=== PATIENT | female | born 1980 | race Caucasian/White ===

== ENCOUNTER → 2024-02-11 14:35 | Outpatient (CLI) | payer OTHER, SELFPAY ==
[2024-02-11 15:13] LABS: Ur Creatinine Normal (Normal); Ur Specific Gravity Normal (Normal); Urine Tetrahydrocannabinol Positive (Negative); Urine pH Normal (Normal)
[2024-02-11 15:14] LABS: UR Morphine/Opiate cutoff 300 Negative (Negative); Urine Amphetamines Negative (Negative); Urine Barbiturates Negative (Negative); Urine Benzodiazepines Negative (Negative); Urine Cocaine Negative (Negative); Urine MDMA Negative (Negative); Urine Methadone Negative (Negative); Urine Methamphetamines Negative (Negative); Urine Oxycodone Negative (Negative); Urine Phencyclidine Negative (Negative); Urine Tricyclic Antidepressant Negative (Negative)
== END ==
PROVIDERS: PCP Family Medicine; Referring Provider Student in an Organized Health Care Education/Training Program; Visit Provider Student in an Organized Health Care Education/Training Program
DX: Z51.81 Encounter for therapeutic drug level monitoring (principal)
CPT/HCPCS: 80305

== ENCOUNTER 2024-03-09 16:45 | Emergency (ER) | payer OTHER, MEDICAID, SELFPAY ==
[2024-03-09] VITALS (24 sets, daily range): BP systolic 78–115; BP diastolic 44–69; PULSE 69–87; RESP 14–42; TEMP 37; O2SAT 96–100; BMI 25.7
--- NOTE | 2024-03-09 16:56 | DI.RAD.S_ITS ---
PROCEDURE: XR CHEST 1V INDICATIONS: suspected sepsis TECHNIQUE: One view of the chest was acquired. COMPARISON: None. FINDINGS: Surgical changes and devices: Partially visualized catheter projecting over the right upper quadrant. Lungs and pleura: Lungs are clear. No pleural effusions or pneumothorax. Mediastinum: Mediastinal contours appear normal. Heart size is normal. Bones and chest wall: No suspicious bony lesions. Overlying soft tissues appear unremarkable. IMPRESSION: No acute cardiopulmonary abnormality is seen. Dictated by: Wilton Downs M.D. on 03/09/2024 at 17:20 Approved by: Wilton Downs M.D. on 03/09/2024 at 17:20
--- NOTE | 2024-03-09 16:56 | EKG_ITS ---
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
[2024-03-09 17:23] LABS: Add Manual Diff / Slide Review NO; Basophils Absolute Auto 0 /uL (0-100); Basophils Percent Auto 0.3 % (0-2); Eosinophils Absolute Auto 100 /uL (0-450); Eosinophils Percent Auto 0.6 % (2-4); Hematocrit 23.8 % (36-46); Hemoglobin 7.7 g/dL (12.0-16.0); Lymphocytes Absolute Auto 500 /uL (1100-4500); Lymphocytes Percent Auto 3.5 % (25-40); Mean Corpuscular HGB Conc 32.2 % (30-36); Mean Corpuscular Hemoglobin 25.5 PG (26-34); Mean Corpuscular Volume 79.2 fL (80-100); Monocytes Absolute Auto 600 /uL (0-900); Monocytes Percent Auto 4.7 % (3-14); Neutrophils Absolute Auto 11800 /uL (1500-7000); Neutrophils Percent Auto 90.9 % (50-75); Platelet Count 451 X10^3/uL (150-400); Red Cell Distribution Width 16.1 % (11.6-14.8); White Blood Cell Count 12.9 X10^3/uL (4.5-11.0)
[2024-03-09 17:27] LABS: INR 1.3 (0.9-1.3); Prothrombin Time 14.6 SECONDS (9.4-12.5)
[2024-03-09 17:30] LABS: PTT Partial Thromboplastin Tim 29 SECONDS (25.1-36.5)
[2024-03-09 17:33] LABS: Lactate (Lactic Acid) 1.4 mmol/L (0.7-2.1)
[2024-03-09 17:35] LABS: Alanine Aminotransferase 18 IU/L (<35); Albumin 3.7 g/dL (3.5-5.0); Albumin Globulin Ratio 0.9 (1.0-2.8); Alkaline Phosphatase 109 U/L (38-126); Aspartate Aminotransferase 28 IU/L (14-36); BUN Creatinine Ratio 16.5 (6-22); Bilirubin Total 0.6 mg/dL (0.2-1.3); Blood Urea Nitrogen 51 mg/dL (7-17); Carbon Dioxide 14 mmol/L (22-32); Chloride 101 mmol/L (98-107); Estimated Glomerular Filt Rate 19 mL/min (>60); Globulin 3.9 g/dL (1.7-4.1); Glucose 109 mg/dL (70-100); HEMOLYSIS < 15 (0-50); Lipase 78 U/L (23-300); Sodium 131 mmol/L (137-145); Total Protein 7.6 g/dL (6.3-8.2)
[2024-03-09] MEDS: SODIUM CHLORIDE 0.9% 1,000 ML 1000 ML IV (17:42)
[2024-03-09 17:52] LABS: Procalcitonin 1.71 ng/mL (<0.5)
[2024-03-09] MEDS: ONDANSETRON 4 MG/2 ML INJ IV (17:54)
--- NOTE | 2024-03-09 17:59 | DI.CT.S_ITS ---
PROCEDURE: CT ABDOMEN PELVIS WO CON INDICATIONS: Possible psoas mass/left flank pain TECHNIQUE: Axial sections were acquired from the lung bases to the pubic symphysis. Coronal and sagittal reformats were performed. For radiation dose reduction, the following was used: automated exposure control, adjustment of mA and/or kV according to patient size. COMPARISON: [facility], CT, CT ABDOMEN PELVIS WITHOUT CONTRAST, 04/12/2023, 12:46. FINDINGS: Image quality: Diagnostic. Lower Chest: Mild ground-glass at the left medial base, likely atelectasis given moderate to large hiatal hernia. Hiatal hernia appears mildly increased in size compared to prior. URINARY: Right Kidney: Right percutaneous nephroureteral tube extending to the right lower quadrant ileal conduit. Right Ureter: Stent in place. Left Kidney: Moderate to severe left hydro nephrosis is increased compared to prior. Left Ureter: At least moderate left hydroureter is increased compared to prior. Bladder: Surgically absent. ABDOMEN: Liver: No contour-deforming solid mass. Gallbladder: No radiopaque gallstones or wall thickening. Biliary ducts: No biliary dilation. Pancreas: No ductal dilation. Spleen: Size is within normal limits. Adrenal Glands: No adrenal nodules. Stomach and Bowel: Prior proctectomy and tram flap reconstruction. Left lower quadrant colostomy is redemonstrated. Peritoneum: No abnormal intraperitoneal fluid. No free air. Ventral Wall: No hernia. Abdominal Nodes: No enlarged retroperitoneal or mesenteric lymph nodes. Vessels: Aorta and inferior vena cava are normal in size. Atherosclerotic vascular calcifications. PELVIS: Pelvic Organs: Unremarkable. Pelvic Nodes: Unremarkable. Miscellaneous: Left pelvic sidewall/psoas lesion now demonstrates heterogeneous internal contents with gas, may represent central necrosis. It is increased in size compared to prior exam measuring 11.7 x 8.3 centimeters, previously 8.2 x 6.4 centimeters. Bones: Redemonstration of sacral insufficiency fracture. No suspicious osseous lesions. IMPRESSION: 1. Increased size of left pelvic sidewall/psoas lesion measuring up to 11.7 centimeters, previously 8.2 centimeters. There is new gas within the lesion with heterogeneous contents which likely represents central necrosis. 2. Interval development of moderate to severe left hydroureter nephrosis and at least moderate hydroureter. 3. Interval placement of right percutaneous nephrostomy ureteral tube extending to the right ileal conduit in. Resolution of prior hydronephrosis. 4. Stable postsurgical changes as described above. Dictated by: Wilton Downs M.D. on 03/09/2024 at 18:55 Approved by: Wilton Downs M.D. on 03/09/2024 at 19:05
[2024-03-09] MEDS: cefTRIAXone 1,000 MG in SODIUM CHLORIDE 0.9% 100 ML 200 MG IV (18:41)
--- NOTE | 2024-03-09 19:01 | ED_ITS ---
HPI - General Adult General Chief complaint: Weakness Stated complaint: left side px difficulty walking Time Seen by Provider: 03/09/24 17:36 Source: patient Mode of arrival: EMS Limitations: no limitations History of Present Illness HPI narrative: Patient is a 43-year-old female. Has a complicated medical history. Has had a history of cervical cancer. Has had most of her pelvic organs removed. Has a right-sided urostomy. Also has a colostomy. 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 She was being followed by Oncology for this. Is not currently undergoing treatment. Unsure when her last scan was but she thinks that it was some time ago. She also was recently started on antibiotics for urinary tract infection. She states she gets frequent urinary tract infections and a couple days ago started noticing that she was getting subjective fevers but also foul-smelling urine and discolored urine. This was prescribed by her oncologist. Over the past several days she was had an increase in discomfort in her left pelvic region. She was on Suboxone. Has a history of heroin abuse. Has been clean for about 13 years. 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 She was not taking her Suboxone today. States when she starts to feel poorly it is ?difficult? for her to take this medication. She has a follow-up with her oncologist on Wednesday of next week. Related Data Home Medications Medication Instructions Recorded Confirmed docusate sodium 100 mg capsule 100 mg PO BIDP PRN ##0 08/03/17 02/09/24 estradiol 2 mg tablet 2 mg PO QDAY ##0 08/03/17 02/09/24 multivitamin (Multiple Vitamins 1 tab PO QDAY ##0 08/03/17 02/09/24 tablet) buprenorphine 8 mg-naloxone 2 mg 1 film sublingual BID #0 ea 05/05/19 02/09/24 sublingual film (Suboxone) ascorbic acid (vitamin C) 500 mg mg PO 02/09/24 02/09/24 capsule Previous Rx's Medication Instructions Recorded clonidine HCl 0.2 mg tablet See Rx Instructions .Route 02/09/24 .COMPLEX #90 tabs dextroamphetamine-amphetamine ER 15 mg PO QAM ADHD #30 caps 02/09/24 15 mg 24hr capsule,extend release (Adderall XR) fluoxetine 40 mg capsule 80 mg (2 x 40 mg) PO DAILY 90 days 02/09/24 #180 caps Allergies Allergy/AdvReac Type Severity Reaction Status Date / Time ciprofloxacin Allergy Severe HIVES Verified 03/09/24 16:48 Penicillins [PENICILLINS] Allergy Mild HIVES Verified 03/09/24 16:48 adhesive tape Allergy Verified 03/09/24 16:48 amoxicillin Allergy hives, Verified 03/09/24 16:48 swelling TRACE MEDALS Allergy Mild ANAPHILAXIS Uncoded 03/09/24 16:48 Review of Systems Review of Systems ROS Unobtainable: All systems reviewed & are unremarkable except as noted in HPI and below Patient History Medical History Stimulant use disorder Opioid use disorder, severe, in sustained remission MDD (major depressive disorder), recurrent, in full remission PTSD (post-traumatic stress disorder) Colostomy present Metastasis from cervical cancer Primary cervical squamous cell carcinoma CKD (chronic kidney disease) Depression (emotion) Surgical History (Updated 08/27/20 @ 11:55 by Yung Elliott DO) Nephrostomy status S/P hysterectomy Social History Smoking Status: Former smoker Smoking Status: Former smoker Substance Use Type: marijuana Exam Initial Vital Signs Initial Vital Signs: Vital Signs Temperature 98.6 F 03/09/24 16:48 Pulse Rate 87 03/09/24 16:48 Respiratory Rate 16 03/09/24 16:48 Blood Pressure 86/48 L 03/09/24 16:48 Pulse Oximetry 96 03/09/24 16:48 Oxygen Delivery Method Room Air 03/09/24 16:48 Const General: cooperative and No ill appearing [facility] Head: normal to inspection and normocephalic Resp Effort & Inspection: normal respiratory effort Auscultation: clear to auscultation bilaterally Cardio Rate: regular rate Rhythm: regular rhythm GI Other: Colostomy in place and appears well Back/Spine/Pelvis Other: Urostomy right CVA region appears well Skin General: no rashes or lesions noted Neuro General: patient alert, patient awake and moves all extremities Extrem General: capillary refill normal Course Orders Ordered: ED Orders 03/09/24 16:56 XR chest 1V Stat EKG-12 Lead Stat RT Consult Eval and Treat NOW 03/09/24 17:07 Complete Blood Count AUTO DIFF Stat Comprehensive Metabolic Panel Stat Lactate (Lactic Acid) Stat Lipase Stat PTT Partial Thromboplastin Brendan Stat Test Serum,Qual Stat Procalcitonin Stat Prothrombin Time INR Stat 03/09/24 17:59 CT abdomen pelvis wo con Stat 03/09/24 18:45 Urinalysis and Microscopic Stat Urine Culture Stat Urine Drug Screen, Rapid Stat Discontinued Medications Sodium Chloride (Normal Saline 0.9%) 1,000 mls @ 1,000 mls/hr IV BOLUS ONE Stop: 03/09/24 18:35 Last Infusion: 03/09/24 19:10 Dose: Infused Documented By: Admin: 03/09/24 17:42 Dose: 1,000 mls/hr Documented By: RADHA Ceftriaxone Sodium 1,000 mg/ (Sodium Chloride) 100 mls @ 200 mls/hr IV NOW ONE Stop: 03/09/24 18:21 Last Infusion: 03/09/24 19:18 Dose: Infused Documented By: Admin: 03/09/24 18:41 Dose: 200 mls/hr Documented By: RADHA Ondansetron HCl (Ondansetron 4 Mg/2 Ml Inj) 4 mg IV NOW PRN PRN Reason: Nausea And Vomiting Last Admin: 03/09/24 17:54 Dose: 4 mg Documented By: RADHA Ondansetron HCl (Ondansetron 4 Mg Odt) 4 mg SL NOW PRN PRN Reason: Nausea And Vomiting Vital Signs Vital signs: Vital Signs - 8 hr 03/09/24 16:48 03/09/24 17:41 03/09/24 17:42 Temperature 98.6 F Pulse Rate 87 75 Respiratory Rate 16 14 Blood Pressure 86/48 L 78/52 L Pulse Oximetry 96 97 Oxygen Delivery Method Room Air 03/09/24 17:42 03/09/24 17:43 03/09/24 17:43 Temperature Pulse Rate 75 74 Respiratory Rate 22 17 Blood Pressure 93/47 L Pulse Oximetry 99 99 Oxygen Delivery Method 03/09/24 17:45 03/09/24 17:45 03/09/24 17:50 Temperature Pulse Rate 74 78 Respiratory Rate 21 Blood Pressure 90/52 L Pulse Oximetry 99 96 Oxygen Delivery Method Room Air 03/09/24 17:50 03/09/24 17:55 03/09/24 17:55 Temperature Pulse Rate 72 Respiratory Rate 28 H Blood Pressure 94/44 L 93/52 L Pulse Oximetry 100 Oxygen Delivery Method Room Air 03/09/24 18:00 03/09/24 18:00 03/09/24 18:05 Temperature Pulse Rate 74 73 Respiratory Rate 37 H 29 H Blood Pressure 85/50 L Pulse Oximetry 99 100 Oxygen Delivery Method Room Air 03/09/24 18:05 03/09/24 18:13 03/09/24 18:13 Temperature Pulse Rate 78 Respiratory Rate 42 H Blood Pressure 91/54 L 90/48 L Pulse Oximetry 99 Oxygen Delivery Method 03/09/24 18:16 03/09/24 18:16 03/09/24 18:21 Temperature Pulse Rate 74 75 Respiratory Rate 24 Blood Pressure 92/51 L Pulse Oximetry 100 99 Oxygen Delivery Method 03/09/24 18:21 03/09/24 18:30 03/09/24 18:30 Temperature Pulse Rate 73 Respiratory Rate Blood Pressure 97/54 L 87/48 L Pulse Oximetry 97 Oxygen Delivery Method Room Air 03/09/24 18:50 03/09/24 18:50 03/09/24 19:00 Temperature Pulse Rate 79 71 Respiratory Rate 19 Blood Pressure 97/53 L Pulse Oximetry 98 100 Oxygen Delivery Method Room Air 03/09/24 19:00 03/09/24 19:10 03/09/24 19:10 Temperature Pulse Rate 69 Respiratory Rate Blood Pressure 110/65 107/62 Pulse Oximetry 99 Oxygen Delivery Method Room Air 03/09/24 19:20 03/09/24 19:20 03/09/24 19:30 Temperature Pulse Rate 71 71 Respiratory Rate 20 21 Blood Pressure 106/62 111/69 Pulse Oximetry 99 99 Oxygen Delivery Method Room Air 03/09/24 19:40 03/09/24 19:50 03/09/24 20:00 Temperature Pulse Rate 71 70 71 Respiratory Rate 23 22 16 Blood Pressure 104/55 L 101/59 L 97/59 L Pulse Oximetry 98 98 Oxygen Delivery Method 03/09/24 20:10 03/09/24 20:20 03/09/24 20:30 Temperature Pulse Rate 71 73 71 Respiratory Rate 18 20 18 Blood Pressure 106/64 115/69 104/60 Pulse Oximetry 98 100 100 Oxygen Delivery Method Room Air Medical Decision Making Lab Data Lab results reviewed: Yes I reviewed the patient's lab results. 03/09/24 17:07 03/09/24 17:07 Labs: Lab Results 03/09/24 03/09/24 03/09/24 Range/Units 17:07 18:45 18:45 WBC 12.9 H (4.5-11.0) X10^3/uL RBC 3.00 L (4.0-5.2) X10^6/uL Hgb 7.7 L (12.0-16.0) g/dL Hct 23.8 L (36-46) % MCV 79.2 L (80-100) fL MCH 25.5 L (26-34) PG MCHC 32.2 (30-36) % RDW 16.1 H (11.6-14.8) % Plt Count 451 H (150-400) X10^3/uL Neut % (Auto) 90.9 H (50-75) % Lymph % (Auto) 3.5 L (25-40) % [place] % (Auto) 4.7 (3-14) % Eos % (Auto) 0.6 L (2-4) % Baso % (Auto) 0.3 (0-2) % Neut # (Auto) 19955 H (5524-1155) /uL Lymph # (Auto) 500 L (0081-4778) /uL Edwards # (Auto) 600 (0-900) /uL Eos # (Auto) 100 (0-450) /uL Baso # (Auto) 0 (0-100) /uL PT 14.6 H (9.4-12.5) SECONDS INR 1.3 (0.9-1.3) APTT 29 (25.1-36.5) SECONDS Sodium 131 L (137-145) mmol/L Potassium 3.0 L (3.4-5.1) mmol/L Chloride 101 (98-107) mmol/L Carbon Dioxide 14 L (22-32) mmol/L BUN 51 H (7-17) mg/dL Creatinine 3.09 H (0.52-1.04) mg/dL Estimated GFR 19 L (>60) mL/min BUN/Creatinine Ratio 16.5 (6-22) Glucose 109 H (70-100) mg/dL Lactate 1.4 (0.7-2.1) mmol/L Calcium 9.0 (8.4-10.2) mg/dL Total Bilirubin 0.6 (0.2-1.3) mg/dL AST 28 (14-36) IU/L ALT 18 (<35) IU/L Alkaline Phosphatase 109 (38-126) U/L Total Protein 7.6 (6.3-8.2) g/dL Albumin 3.7 (3.5-5.0) g/dL Globulin 3.9 (1.7-4.1) g/dL Albumin/Globulin Ratio 0.9 L (1.0-2.8) Lipase 78 (23-300) U/L Procalcitonin 1.71 H (<0.5) ng/mL Serum , Qual Negative (Negative) Urine Color Yellow Urine Appearance Clear Urine pH 5.0 Normal (4.5-8.0) Ur Specific [place] 1.015 (1.000-1.035) Urine Protein Trace H (Negative) Urine Glucose (UA) Negative (Negative) g/dL Urine Ketones Negative (NEGATIVE) Urine Occult Blood 1+ H (Negative) Urine Nitrate Positive H (Negative) Urine Bilirubin Negative (NEGATIVE) Urine Urobilinogen 0.2 (0.2) E.U./dL Ur Leukocyte Esterase 3+ H (NEGATIVE) Urine RBC 0-1/hpf (0-5/HPF) Urine WBC 10-30/hpf H (0-5/HPF) Ur Squamous Epith Cells 1-5 /hpf (0-5/HPF) Amorphous Sediment 1+ Urine Bacteria Many (>30) H (None) Vol Urine Centrifuged 2-no spin U Opiates 300ng/mL cut Negative (Negative) Ur Oxycodone Screen Negative (Negative) Urine Methadone Screen Negative (Negative) Ur Barbiturates Screen Negative (Negative) U Tricyclic Antidepress Negative (Negative) Ur Phencyclidine Scrn Negative (Negative) Ur Amphetamines Screen Negative (Negative) U Methamphetamines Scrn Negative (Negative) Ur MDMA Scrn (Ecstasy) Negative (Negative) U Benzodiazepines Scrn Negative (Negative) Urine Cocaine Screen Negative (Negative) U Marijuana (THC) Screen Positive H (Negative) Urine Specific [place] Normal (Normal) Ur Creatinine Normal (Normal) Imaging Data Chest x-ray: Radiologist's Impression: ROCEDURE: XR CHEST 1V INDICATIONS: suspected sepsis TECHNIQUE: One view of the chest was acquired. COMPARISON: None. FINDINGS: Surgical changes and devices: Partially visualized catheter projecting over the right upper quadrant. Lungs and pleura: Lungs are clear. No pleural effusions or pneumothorax. Mediastinum: Mediastinal contours appear normal. Heart size is normal. Bones and chest wall: No suspicious bony lesions. Overlying soft tissues appear unremarkable. IMPRESSION: No acute cardiopulmonary abnormality is seen. CT scan - abdomen/pelvis: Radiologist's Impression: PROCEDURE: CT ABDOMEN PELVIS WO CON INDICATIONS: Possible psoas mass/left flank pain TECHNIQUE: Axial sections were acquired from the lung bases to the pubic symphysis. Coronal and sagittal reformats were performed. For radiation dose reduction, the following was used: automated exposure control, adjustment of mA and/or kV according to patient size. COMPARISON: [facility], CT, CT ABDOMEN PELVIS WITHOUT CONTRAST, 04/12/2023, 12:46. FINDINGS: Image quality: Diagnostic. Lower Chest: Mild ground-glass at the left medial base, likely atelectasis given moderate to large hiatal hernia. Hiatal hernia appears mildly increased in size compared to prior. URINARY: Right Kidney: Right percutaneous nephroureteral tube extending to the right lower quadrant ileal conduit. Right Ureter: Stent in place. Left Kidney: Moderate to severe left hydro nephrosis is increased compared to prior. Left Ureter: At least moderate left hydroureter is increased compared to prior. Bladder: Surgically absent. ABDOMEN: Liver: No contour-deforming solid mass. Gallbladder: No radiopaque gallstones or wall thickening. Biliary ducts: No biliary dilation. Pancreas: No ductal dilation. Spleen: Size is within normal limits. Adrenal Glands: No adrenal nodules. Stomach and Bowel: Prior proctectomy and tram flap reconstruction. Left lower quadrant colostomy is redemonstrated. Peritoneum: No abnormal intraperitoneal fluid. No free air. Ventral Wall: No hernia. Abdominal Nodes: No enlarged retroperitoneal or mesenteric lymph nodes. Vessels: Aorta and inferior vena cava are normal in size. Atherosclerotic vascular calcifications. PELVIS: Pelvic Organs: Unremarkable. Pelvic Nodes: Unremarkable. Miscellaneous: Left pelvic sidewall/psoas lesion now demonstrates heterogeneous internal contents with gas, may represent central necrosis. It is increased in size compared to prior exam measuring 11.7 x 8.3 centimeters, previously 8.2 x 6.4 centimeters. Bones: Redemonstration of sacral insufficiency fracture. No suspicious osseous lesions. IMPRESSION: 1. Increased size of left pelvic sidewall/psoas lesion measuring up to 11.7 centimeters, previously 8.2 centimeters. There is new gas within the lesion with heterogeneous contents which likely represents central necrosis. 2. Interval development of moderate to severe left hydroureter nephrosis and at least moderate hydroureter. 3. Interval placement of right percutaneous nephrostomy ureteral tube extending to the right ileal conduit in. Resolution of prior hydronephrosis. 4. Stable postsurgical changes as described above. ECG Data Attestation: I personally reviewed and interpreted this ECG as follows: Interpretation: Sinus rhythm Ventricular rate is 71 Normal axis Normal QRS No ST T wave changes MDM Narrative Medical decision making narrative: She was have a leukocytosis of 12 in an elevated procalcitonin and a urinalysis that would be consistent with a urinary tract infection although she was currently on Cipro. I have no prior urine cultures to review to make any changes to this medication. Her urostomy appears well. Colonoscopy appears well. She was not taking her Suboxone today. Is tolerating oral intake. Was actually brought in because of increasing pain in her left pelvic region. CT scan today shows enlargement of the psoas lesion. Almost twice as large as what it was year ago. She was a creatinine of 3. She states she has baseline chronic kidney disease and she thinks that her creatinine is in the 2.5 range of baseline. There was no prior for us to evaluate here in the ER. I did discuss the case with Dr. Louise oncology who was informed of the findings. He agrees that patient can follow-up with her oncologist on Wednesday. Had a discussion with her regarding her symptoms. She understands the concern about starting her on opioid pain medicine given her history. Advised that she take her Suboxone. Advised that she contact her painter interior finish tomorrow to discuss other pain control options. Advised that she continue to take her antibiotics. She was given return precautions. She expressed understanding and agreement. We did discuss the enlargement of the psoas lesion. Discharge Plan Departure Patient Disposition: Home Clinical Impression: Mass of psoas muscle Activity Restrictions/Additional Instructions: I recommend that you continue to take all of your medications as directed to include your Suboxone. Tomorrow you do need to contact your painter interior finish to discuss medication that can be used for breakthrough pain. Keep your appointment that you have with your oncologist on Wednesday. Return to the emergency department for new symptoms. Continue to take your antibiotics for the urinary tract infection. Prescriptions: No Action ascorbic acid (vitamin C) 500 mg capsule PO fluoxetine 40 mg capsule 80 mg PO DAILY 90 Days Qty: 180 1RF clonidine HCl 0.2 mg tablet See Rx Instructions .ROUTE .COMPLEX Qty: 90 3RF Dose Instruction: take one tablet by mouth at bedtime Rx Instructions: take one tablet by mouth at bedtime dextroamphetamine-amphetamine [Adderall XR] 15 mg capsule,extended release 24hr 15 mg PO QAM Qty: 30 0RF multivitamin [Multiple Vitamins] 1 EACH tablet 1 tab PO QDAY Qty: 0 estradiol 2 MG tablet 2 mg PO QDAY Qty: 0 docusate sodium 100 MG capsule 100 mg PO BIDP PRNQty: 0 buprenorphine-naloxone [Suboxone] 8-2 mg film 1 film Sublingual BID Qty: 0 Referrals: Tali Newman DO [Primary Care Provider] - Stand Alone Forms: Patient Portal/API
[2024-03-09 19:02] LABS: Pregnancy Test Serum,Qual Negative (Negative)
[2024-03-09 19:15] LABS: Ur Creatinine Normal (Normal); Ur Specific Gravity Normal (Normal); Urine Amphetamines Negative (Negative); Urine Barbiturates Negative (Negative); Urine Benzodiazepines Negative (Negative); Urine Cocaine Negative (Negative); Urine MDMA Negative (Negative); Urine Methadone Negative (Negative); Urine Methamphetamines Negative (Negative); Urine Opiates Negative (Negative); Urine Oxycodone Negative (Negative); Urine Phencyclidine Negative (Negative); Urine THC Positive (Negative); Urine Tricyclic Antidepressant Negative (Negative); Urine pH Normal (Normal)
[2024-03-09 19:24] LABS: Appearance Urine UA CLEAR; Bilirubin Urine UA NEGATIVE (NEGATIVE); Color Urine UA YELLOW; Glucose Urine UA NEGATIVE (Negative); Ketones Urine UA NEGATIVE (NEGATIVE); Nitrite Urine UA POSITIVE (Negative); Occult Blood Urine UA 1+ (Negative); Protein Urine UA TRACE (Negative); Specific Gravity Urine UA 1.015 (1.000-1.035); Urobilinogen Urine UA 0.2 E.U./dL (0.2)
[2024-03-09 19:26] LABS: Leukocyte Esterase Urine UA 3+ (NEGATIVE)
[2024-03-09 19:27] LABS: Amorphous Sediment Urine 1+; Bacteria Urine Many (>30); RBC Urine 0-1/HPF (0-5/HPF); Squamous Epithelial Cell Urine 1-5 /HPF (0-5/HPF); Urine Volume 2-NO SPIN; WBC Urine 10-30/HPF (0-5/HPF)
== END 2024-03-09 20:40 | disposition home or self-care (01) ==
PROVIDERS: Emergency Medicine; Emergency Provider Emergency Medicine; PCP Family Medicine
DX: M62.89 Other specified disorders of muscle (principal); R10.2 Pelvic and perineal pain; I45.10 Unspecified right bundle-branch block
CPT/HCPCS: 36415; 71045; 74176; 80053; 80305; 81001; 83605; 83690; 84145; 84703; 85025; 85610; 85730; 87040; 87086; 93005; 93010; 96361; 96365; 96375; 99284; J0696; J2405

== ENCOUNTER 2024-04-22 20:17 | Emergency (ER) | payer OTHER, MEDICAID, SELFPAY ==
[2024-04-22] VITALS (18 sets, daily range): BP systolic 82–104; BP diastolic 42–68; PULSE 84–99; RESP 16–27; TEMP 36.9–37.2; O2SAT 96–100; BMI 25.7
[2024-04-22 21:11] LABS: Add Manual Diff / Slide Review NO; Basophils Absolute Auto 0 /uL (0-100); Basophils Percent Auto 0.2 % (0-2); Eosinophils Absolute Auto 100 /uL (0-450); Eosinophils Percent Auto 0.5 % (2-4); Lymphocytes Absolute Auto 800 /uL (1100-4500); Mean Corpuscular HGB Conc 30.5 % (30-36); Mean Corpuscular Volume 75.4 fL (80-100); Monocytes Absolute Auto 700 /uL (0-900); Monocytes Percent Auto 4.4 % (3-14); Neutrophils Absolute Auto 13700 /uL (1500-7000); Neutrophils Percent Auto 89.9 % (50-75); Platelet Count 763 X10^3/uL (150-400); Red Blood Cell Count 1.74 X10^6/uL (4.0-5.2); White Blood Cell Count 15.2 X10^3/uL (4.5-11.0)
[2024-04-22 21:12] LABS: Hematocrit 13.1 % (36-46)
--- NOTE | 2024-04-22 21:13 | ED.ABDPAIN ---
HPI - Abdominal Pain General Chief Complaint: Weakness Stated Complaint: Kidney pain- not draining right side neph tube Time Seen by Provider: 04/22/24 21:12 Source: patient Mode of arrival: Wheelchair History of Present Illness HPI narrative: Patient is a 43-year-old female with a complicated medical history with history of cervical cancer has had most of her pelvic organs removed has had right-sided urostomy also has had a colostomy. 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 Is being followed by Oncology. He has not undergoing any chemoradiation at this time. She presents for multiple complaints today complaining of increased weakness, decreased output to her nephrostomy tube as well as worsening smell from her colostomy tube. She is on Suboxone due to history of heroin abuse but it has been cleaned for several years. 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 She comes in complaining of multiple complaints. States that she is feeling more weak at this time, also stating that mass in her leg has gotten bigger in the past week. Muscle stating that over the past week her right-sided nephrostomy tube is not draining. Related Data Home Medications Medication Instructions Recorded Confirmed docusate sodium 100 mg capsule 100 mg PO BIDP PRN ##0 08/03/17 02/09/24 estradiol 2 mg tablet 2 mg PO QDAY ##0 08/03/17 02/09/24 multivitamin (Multiple Vitamins 1 tab PO QDAY ##0 08/03/17 02/09/24 tablet) buprenorphine 8 mg-naloxone 2 mg 1 film sublingual BID #0 ea 05/05/19 02/09/24 sublingual film (Suboxone) ascorbic acid (vitamin C) 500 mg mg PO 02/09/24 02/09/24 capsule clonidine HCl 0.2 mg tablet 0.1 mg .Route .COMPLEX 03/22/24 Previous Rx's Medication Instructions Recorded dextroamphetamine-amphetamine ER 15 mg PO QAM ADHD #30 caps 02/09/24 15 mg 24hr capsule,extend release (Adderall XR) fluoxetine 40 mg capsule 80 mg (2 x 40 mg) PO DAILY 90 days 02/09/24 #180 caps Allergies Allergy/AdvReac Type Severity Reaction Status Date / Time ciprofloxacin Allergy Severe HIVES Verified 03/09/24 16:48 Penicillins [PENICILLINS] Allergy Mild HIVES Verified 03/09/24 16:48 adhesive tape Allergy Verified 03/09/24 16:48 amoxicillin Allergy hives, Verified 03/09/24 16:48 swelling [employer] Allergy Mild ANAPHILAXIS Uncoded 03/09/24 16:48 Review of Systems Review of Systems Narrative: General: Positive generalized weakness HEENT: Denies headache, eye drainage, eye irritation, head trauma, sore throat, voice change Cardiovascular: Denies any chest pain, palpitations, shortness of breath, tachycardia Respiratory: Denies any shortness of breath, cough, wheeze, stridor GI/: Denies any abdominal pain, nausea, vomiting, diarrhea, bright red blood per rectum, melanotic stools, urinary frequency, urinary retention, dysuria, hematuria MSK: Increased pain to the left thigh Skin: Denies any rashes, lesions, discoloration Neuro: Denies any headache, lightheadedness, dizziness, fainting, weakness Psych: Denies SI/HI Patient History Medical History Stimulant use disorder Opioid use disorder, severe, in sustained remission MDD (major depressive disorder), recurrent, in full remission PTSD (post-traumatic stress disorder) Colostomy present Metastasis from cervical cancer Primary cervical squamous cell carcinoma CKD (chronic kidney disease) Depression (emotion) Surgical History (Updated 08/27/20 @ 11:55 by Yung Elliott DO) Nephrostomy status S/P hysterectomy Social History Smoking Status: Former smoker Smoking Status: Former smoker alcohol intake frequency: 0-2 drinks per day Substance Use Type: marijuana Exam Narrative Exam Narrative: General: Cooperative, pale, well-developed, not in acute distress HEENT: Normocephalic, atraumatic, PERRLA, normal sclera, eyelids normal, Neck: Active full range of motion, atraumatic Chest: Normal to inspection, negative crepitus, no overlying erythema ecchymosis Respiratory: Normal respiratory effort, not in acute respiratory distress, clear to auscultation bilaterally negative cough, wheeze, tachypnea, rhonchi, rales Cardiology: Regular rate rhythm negative gallop, murmur, rubs GI/: Normal to inspection, soft, nonrigid, no tenderness to palpation, exam deferred MSK: There is slight discoloration noted to the left lower extremity, was able to have dopplerable posterior tibialis of the left foot, there is pain swelling to the left thigh consistent with known mass Skin: No rashes lesions noted Neuro: Alert awake oriented x3, moves all 4 extremities spontaneously, cranial nerves intact, able to answer all questions appropriately follows commands appropriately Psych: Cooperative, negative suicidal or homicidal ideations Initial Vital Signs Initial Vital Signs: Vital Signs Temperature 98.9 F 04/22/24 20:28 Pulse Rate 99 H 04/22/24 20:28 Respiratory Rate 20 04/22/24 20:28 Blood Pressure 93/68 04/22/24 20:28 Pulse Oximetry 99 04/22/24 20:28 Oxygen Delivery Method Room Air 04/22/24 20:28 Course Orders Ordered: ED Orders 04/22/24 20:53 Complete Blood Count AUTO DIFF Stat Comprehensive Metabolic Panel Stat Lactate (Lactic Acid) Stat Lipase Stat PT [Prothrombin Time INR] Stat PTT Partial Thromboplastin Brendan Stat Type and Screen Stat blood [Packed Cells] Stat 04/22/24 21:02 EKG-12 Lead Stat 04/22/24 21:06 Consult to [facility] [place] [facility] Stat 04/22/24 21:30 CT angio abd aorta runoff Stat 04/22/24 21:43 Blood Culture Stat 04/22/24 22:11 GI Panel (Film Array) Stat 04/22/24 22:55 Urinalysis and Microscopic Stat Urine Culture Stat 04/23/24 03:08 Fibrinogen Urgent Hemoglobin and Hematocrit Urgent 04/23/24 03:45 FFP [Fresh Frozen Plasma] Stat Vancomycin HCl (Vancomycin) 1,000 mg in 200 mls @ 200 mls/hr IV Q24H [facility] Last Infusion: 04/23/24 01:19 Dose: Infused Documented By: Admin: 04/23/24 00:11 Dose: 200 mls/hr Documented By: JOSE Ondansetron HCl (Ondansetron 4 Mg/2 Ml Inj) 4 mg IV NOW PRN PRN Reason: Nausea And Vomiting Last Admin: 04/22/24 23:02 Dose: 4 mg Documented By: JOSE Ondansetron HCl (Ondansetron 4 Mg Odt) 4 mg PO NOW PRN PRN Reason: Nausea And Vomiting Discontinued Medications Diphenhydramine HCl (Diphenhydramine 50 Mg/Ml Vial) 25 mg IV NOW ONE Stop: 04/22/24 22:15 Last Admin: 04/22/24 22:18 Dose: 25 mg Documented By: JOSE Meropenem 500 mg/ Sodium (Chloride) 100 mls @ 200 mls/hr IV NOW ONE Stop: 04/22/24 23:18 Last Infusion: 04/23/24 00:10 Dose: Infused Documented By: Admin: 04/22/24 23:39 Dose: 200 mls/hr Documented By: JOSE Clindamycin Phosphate (Cleocin) 900 mg in 50 mls @ 50 mls/hr IV NOW ONE Stop: 04/23/24 04:44 Last Infusion: 04/23/24 04:51 Dose: Infused Documented By: Admin: 04/23/24 03:58 Dose: 50 mls/hr Documented By: JOSE Vital Signs Vital signs: Vital Signs - 8 hr 04/22/24 21:09 04/22/24 21:10 04/22/24 21:10 Temperature Pulse Rate 95 H 90 Respiratory Rate 20 23 Blood Pressure 96/42 L Pulse Oximetry 100 100 04/22/24 21:12 04/22/24 21:12 04/22/24 21:13 Temperature Pulse Rate 89 Respiratory Rate 22 Blood Pressure 82/45 L 87/43 L Pulse Oximetry 99 04/22/24 21:13 04/22/24 21:30 04/22/24 21:44 Temperature Pulse Rate 88 87 87 Respiratory Rate 23 27 H 21 Blood Pressure Pulse Oximetry 100 99 96 04/22/24 21:44 04/22/24 22:02 04/22/24 22:03 Temperature Pulse Rate 97 H Respiratory Rate 23 Blood Pressure 94/43 L 104/53 L Pulse Oximetry 96 04/22/24 22:03 04/22/24 22:23 04/22/24 22:23 Temperature Pulse Rate 97 H 90 Respiratory Rate 16 22 Blood Pressure 104/52 L Pulse Oximetry 96 100 04/22/24 22:29 04/22/24 22:30 04/22/24 22:30 Temperature 98.8 F Pulse Rate 96 H 93 H Respiratory Rate 21 Blood Pressure 104/52 L 102/56 L Pulse Oximetry 99 04/22/24 22:45 04/22/24 22:45 04/22/24 22:46 Temperature 98.5 F Pulse Rate 88 86 Respiratory Rate 25 H Blood Pressure 92/49 L 92/52 L Pulse Oximetry 100 04/22/24 23:00 04/22/24 23:00 04/22/24 23:15 Temperature Pulse Rate 86 Respiratory Rate 26 H Blood Pressure 92/47 L 90/45 L Pulse Oximetry 100 04/22/24 23:15 04/22/24 23:30 04/22/24 23:30 Temperature Pulse Rate 84 85 Respiratory Rate 26 H 21 Blood Pressure 90/55 L Pulse Oximetry 98 98 04/22/24 23:45 04/22/24 23:45 04/23/24 00:00 Temperature Pulse Rate 85 Respiratory Rate 22 Blood Pressure 92/52 L 93/51 L Pulse Oximetry 99 04/23/24 00:00 04/23/24 00:05 04/23/24 00:15 Temperature 98.2 F 99.3 F Pulse Rate 85 85 87 Respiratory Rate 30 H 20 Blood Pressure 94/50 L Pulse Oximetry 96 99 04/23/24 00:15 04/23/24 00:24 04/23/24 00:28 Temperature 98.5 F Pulse Rate 89 85 Respiratory Rate 20 20 Blood Pressure 94/54 L 93/51 L Pulse Oximetry 100 04/23/24 00:28 04/23/24 00:30 04/23/24 00:30 Temperature Pulse Rate 85 Respiratory Rate 25 H Blood Pressure 94/50 L 91/55 L Pulse Oximetry 100 04/23/24 00:45 04/23/24 00:45 04/23/24 01:00 Temperature Pulse Rate 82 82 Respiratory Rate 20 29 H Blood Pressure 91/51 L Pulse Oximetry 98 97 04/23/24 01:00 04/23/24 01:15 04/23/24 01:15 Temperature Pulse Rate 89 Respiratory Rate 30 H Blood Pressure 88/50 L 96/54 L Pulse Oximetry 97 04/23/24 01:30 04/23/24 02:00 04/23/24 02:00 Temperature Pulse Rate 83 84 Respiratory Rate 21 21 Blood Pressure 93/51 L Pulse Oximetry 97 96 04/23/24 02:30 04/23/24 03:00 04/23/24 03:00 Temperature Pulse Rate 86 86 Respiratory Rate 22 22 Blood Pressure 93/54 L Pulse Oximetry 95 94 04/23/24 04:30 04/23/24 04:48 Temperature 98.2 F 98.4 F Pulse Rate 85 87 Respiratory Rate 16 19 Blood Pressure 93/57 L 101/58 L Pulse Oximetry MDM - Abdominal Pain Differential Diagnosis Differential diagnosis: Likely abdominal pain, small bowel obstruction and other (Ischemic limb, electrolyte abnormality,) Lab Data 04/23/24 03:08 04/22/24 20:53 Labs: Lab Results 04/22/24 04/22/24 04/22/24 Range/Units 20:53 22:11 22:55 WBC 15.2 H (4.5-11.0) X10^3/uL RBC 1.74 L (4.0-5.2) X10^6/uL Hgb 4.0 L* (12.0-16.0) g/dL Hct 13.1 L* (36-46) % MCV 75.4 L (80-100) fL MCH 23.0 L (26-34) PG MCHC 30.5 (30-36) % RDW 19.0 H (11.6-14.8) % Plt Count 763 H (150-400) X10^3/uL Neut % (Auto) 89.9 H (50-75) % Lymph % (Auto) 5.0 L (25-40) % [place] % (Auto) 4.4 (3-14) % Eos % (Auto) 0.5 L (2-4) % Baso % (Auto) 0.2 (0-2) % Neut # (Auto) 73931 H (7567-9094) /uL Lymph # (Auto) 800 L (9000-6853) /uL [place] # (Auto) 700 (0-900) /uL Eos # (Auto) 100 (0-450) /uL Baso # (Auto) 0 (0-100) /uL Platelet Estimate Increased on smear RBC Morphology See below Hypochromasia 1+ H Anisocytosis 1+ H PT 14.1 H (9.4-12.5) SECONDS INR 1.2 (0.9-1.3) APTT 31 (25.1-36.5) SECONDS Fibrinogen (238-498) mg/dL Sodium 122 L (137-145) mmol/L Potassium 3.3 L (3.4-5.1) mmol/L Chloride 90 L (98-107) mmol/L Carbon Dioxide 17 L (22-32) mmol/L BUN 40 H (7-17) mg/dL Creatinine 2.34 H (0.52-1.04) mg/dL Estimated GFR 26 L (>60) mL/min BUN/Creatinine Ratio 17.1 (6-22) Glucose 107 H (70-100) mg/dL Lactate 1.9 (0.7-2.1) mmol/L Calcium 8.4 (8.4-10.2) mg/dL Total Bilirubin 1.3 (0.2-1.3) mg/dL AST 26 (14-36) IU/L ALT 15 (<35) IU/L Alkaline Phosphatase 126 (38-126) U/L Total Protein 7.2 (6.3-8.2) g/dL Albumin 2.9 L (3.5-5.0) g/dL Globulin 4.3 H (1.7-4.1) g/dL Albumin/Globulin Ratio 0.7 L (1.0-2.8) Lipase 60 (23-300) U/L Urine Color Yellow Urine Appearance Cloudy Urine pH 6.5 (4.5-8.0) Ur Specific [place] 1.015 (1.000-1.035) Urine Protein 2+ H (Negative) Urine Glucose (UA) Negative (Negative) g/dL Urine Ketones Trace H (NEGATIVE) Urine Occult Blood Trace-intact (Negative) Urine Nitrate Negative (Negative) Urine Bilirubin Negative (NEGATIVE) Urine Urobilinogen 1.0 (0.2) E.U./dL Ur Leukocyte Esterase 3+ H (NEGATIVE) Urine RBC 0-1/hpf (0-5/HPF) Urine WBC 30-100/hpf H (0-5/HPF) Ur Squamous Epith Cells 1-5 /hpf (0-5/HPF) Urine Bacteria Many (>30) H (None) Ur Culture Indicated? Specimen cultured Vol Urine Centrifuged 10ml (spun) Stl C. cayetanensis PCR Not detected (Not Detect) Stool Rotavirus (PCR) Not detected (Not Detect) Stool Adenovirus (PCR) Not detected (Not Detect) Stool Astrovirus (PCR) Not detected (Not Detect) Stool Cryptosporidium PCR Not detected (Not Detect) Stl E.coli Shiga Tox PCR Not detected (Not Detect) St Sh/Enteroin Ecoli PCR Not detected (Not Detect) Stl Enterotoxigenic E PCR Not detected (Not Detect) Stool EPEC (PCR) Not detected (Not Detect) Stl E. histolytica PCR Not detected (Not Detect) Stool Giardia Lamblia PCR Not detected (Not Detect) Stool Sapovirus (PCR) Not detected (Not Detect) Stl P. shigelloides PCR Not detected (Not Detect) St Y.enterocolitica PCR Not detected (Not Detect) Stool Vibrio (PCR) Not detected (Not Detect) Stl Vibrio cholerae PCR Not detected (Not Detect) Stl Enteroaggr Ecoli PCR Not detected (Not Detect) Stl Norovirus GI/GII PCR Detected (Not Detect) Campylobacter (PCR) Not detected (Not Detect) C. difficile Tox (PCR) Not detected (Not Detect) Salmonella (PCR) Not detected (Not Detect) Blood Type A Positive Antibody Screen Negative Crossmatch See Detail 04/23/24 Range/Units 03:08 WBC (4.5-11.0) X10^3/uL RBC (4.0-5.2) X10^6/uL Hgb 5.8 L* (12.0-16.0) g/dL Hct 17.6 L* (36-46) % MCV (80-100) fL MCH (26-34) PG MCHC (30-36) % RDW (11.6-14.8) % Plt Count (150-400) X10^3/uL Neut % (Auto) (50-75) % Lymph % (Auto) (25-40) % [place] % (Auto) (3-14) % Eos % (Auto) (2-4) % Baso % (Auto) (0-2) % Neut # (Auto) (4483-4542) /uL Lymph # (Auto) (5826-2670) /uL [place] # (Auto) (0-900) /uL Eos # (Auto) (0-450) /uL Baso # (Auto) (0-100) /uL Platelet Estimate RBC Morphology Hypochromasia Anisocytosis PT (9.4-12.5) SECONDS INR (0.9-1.3) APTT (25.1-36.5) SECONDS Fibrinogen 694 H (238-498) mg/dL Sodium (137-145) mmol/L Potassium (3.4-5.1) mmol/L Chloride (98-107) mmol/L Carbon Dioxide (22-32) mmol/L BUN (7-17) mg/dL Creatinine (0.52-1.04) mg/dL Estimated GFR (>60) mL/min BUN/Creatinine Ratio (6-22) Glucose (70-100) mg/dL Lactate (0.7-2.1) mmol/L Calcium (8.4-10.2) mg/dL Total Bilirubin (0.2-1.3) mg/dL AST (14-36) IU/L ALT (<35) IU/L Alkaline Phosphatase (38-126) U/L Total Protein (6.3-8.2) g/dL Albumin (3.5-5.0) g/dL Globulin (1.7-4.1) g/dL Albumin/Globulin Ratio (1.0-2.8) Lipase (23-300) U/L Urine Color Urine Appearance Urine pH (4.5-8.0) Ur Specific [place] (1.000-1.035) Urine Protein (Negative) Urine Glucose (UA) (Negative) g/dL Urine Ketones (NEGATIVE) Urine Occult Blood (Negative) Urine Nitrate (Negative) Urine Bilirubin (NEGATIVE) Urine Urobilinogen (0.2) E.U./dL Ur Leukocyte Esterase (NEGATIVE) Urine RBC (0-5/HPF) Urine WBC (0-5/HPF) Ur Squamous Epith Cells (0-5/HPF) Urine Bacteria (None) Ur Culture Indicated? Vol Urine Centrifuged Stl C. cayetanensis PCR (Not Detect) Stool Rotavirus (PCR) (Not Detect) Stool Adenovirus (PCR) (Not Detect) Stool Astrovirus (PCR) (Not Detect) Stool Cryptosporidium PCR (Not Detect) Stl E.coli Shiga Tox PCR (Not Detect) St Sh/Enteroin Ecoli PCR (Not Detect) Stl Enterotoxigenic E PCR (Not Detect) Stool EPEC (PCR) (Not Detect) Stl E. histolytica PCR (Not Detect) Stool Giardia Lamblia PCR (Not Detect) Stool Sapovirus (PCR) (Not Detect) Stl P. shigelloides PCR (Not Detect) St Y.enterocolitica PCR (Not Detect) Stool Vibrio (PCR) (Not Detect) Stl Vibrio cholerae PCR (Not Detect) Stl Enteroaggr Ecoli PCR (Not Detect) Stl Norovirus GI/GII PCR (Not Detect) Campylobacter (PCR) (Not Detect) C. difficile Tox (PCR) (Not Detect) Salmonella (PCR) (Not Detect) Blood Type Antibody Screen Crossmatch Point of care testing: Point of Care Testing Test Results Not applicable Imaging Data CT scan - abdomen/pelvis: Radiologist's Impression: [address] [address] [address] Scan Report Signed Patient: Gracie Lorenzana MR#: [id number] : 1980 Acct:[id number] Age/Sex: 43 / F Date of Service: 04/22/24 Loc: ED Accession Number: [id number] Procedure: CT angio abd aorta runoff Ordering Provider: Ventura Rayo D.O. PROCEDURE: CT ANGIO ABD AORTA RUNOFF INDICATIONS: Left psoas hematoma with decreased pulses to lle TECHNIQUE: After the administration of intravenous contrast, 2.5 mm sections acquired from T12 to the feet, with optional delayed image acquisition from the knees to the feet. 3-dimensional maximum intensity projection (MIP) coronal and sagittal reformats, and/or 3-dimensional volume rendering reformatting was then performed. For radiation dose reduction, the following was used: automated exposure control. COMPARISON: [facility], CT, CT ABDOMEN PELVIS WITHOUT CONTRAST, 03/13/2024, 17:43. FINDINGS: Image Quality: Diagnostic. Abdominal aorta: Normal contrast opacification. No aneurysm or dissection. Splanchnic vessels: No hemodynamically significant stenosis or aneurysm is seen in the celiac axis, superior and inferior mesenteric arteries and bilateral renal arteries. Right lower extremity: No hemodynamically significant stenosis is seen. Normal 3 vessel runoff to the ankle level is noted. Left lower extremity: Patent left common femoral artery, with occlusion of left external iliac artery at the level of patient's known left psoas abscess collection. There is reconstituted left common femoral artery at the level of left anterior acetabulum series 4, image 180. Smaller left superficial femoral artery compared to the right side with normal appearing left popliteal artery and three-vessel runoff to left ankle level. Lower Chest: Large hiatal hernia. Dependent atelectasis versus small infiltrates in posterior aspect of left lower lobe is seen. Mild right basilar dependent atelectasis is also seen. No pleural effusion. ABDOMEN: Liver: No solid mass. Gallbladder: Hyperdense sludge material is noted within gallbladder lumen. No gallstones or gallbladder wall thickening. Biliary ducts: No biliary dilation. Pancreas: No ductal dilation. Spleen: Size is within normal limits. Adrenal Glands: No adrenal nodules. Kidneys and Ureters: Right-sided nephrostomy tube is again seen. Moderate to severe left-sided hydronephrosis and hydroureter is again seen. No right-sided hydronephrosis. Right-sided ureteral stent is noted. Bilateral renal atrophy. Stomach and Bowel: There is prior cystectomy and ileal diversion. Right-sided diverting ileostomy and left-sided ostomy is again seen. No evidence of bowel obstruction. Mild fecal stasis in the colon. No gross abnormal bowel wall thickening. Peritoneum: There is no peritoneal free fluid or free air. Large psoas abscess collection extending to involve iliacus muscle and ileal psoas muscle with internal air-fluid level slightly decreased in size compared to 03/13/2024 study. The psoas collection measures up to 5.7 x 7.8 cm in size series 4, image 162. Extensive abscess collection is also seen involving left gluteus medius muscle measures up to 10.1 x 3.4 cm in size which is new since 03/13/2024 study. Subcutaneous air and ill-defined abscess collection along left lateral upper thigh measures up to 5.3 x 3.7 cm in size series 4, image 207 also new since previous study. Air and ill-defined fluid collection also noted along anterior aspect of left upper thigh likely involving ileal psoas muscle measures up to 4.1 x 2.7 cm in size series 4, image 217. Ventral Wall: No hernia. Abdominal Nodes: No retroperitoneal or mesenteric adenopathy by size criteria. Vessels: Aorta and inferior vena cava are normal in size. PELVIS: Pelvic Organs: Unremarkable. Bladder: Unremarkable. Pelvic Nodes: No enlarged lymph nodes. Miscellaneous: No inguinal hernias are seen. Bones: No aggressive osseous abnormality. Asymmetric hypodensity throughout left pelvic and left thigh muscles compared to the right side concerning for myositis particularly involving quadriceps muscles in mid to distal thigh. IMPRESSION: 1. There is occlusion of left external iliac artery just distal to its origin at the level of patient's known large psoas abscess collection with reconstituted left common femoral artery at the level of left acetabulum and slightly diminished flow in left superficial femoral artery and left popliteal artery. Three-vessel runoff to left ankle level. 2. No hemodynamically significant stenosis is seen in abdominal aorta, right pelvic arteries and major branches of aorta. 3. Interval slight decrease in size of patient's known large left psoas abscess collection as described above. There is now worsening abscess involvement to involve left iliacus muscle and left ileus psoas muscle. Additional area of ill-defined abscess collection containing air is now seen along left lateral upper thigh and left gluteus medius muscle as described above. 4. No peritoneal free fluid or free air. No significant changes in appearance of bilateral kidneys with persistent moderate to severe left-sided hydronephrosis and hydroureter and prior surgical changes in including right-sided nephrostomy, a right-sided ureteral stent and right diverting ileostomy and left-sided possible colostomy. 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 Presenting for increased weakness diffusely, increased pain and swelling to the left thigh as well as decreased output to her nephrostomy tube, she is also stating that her colostomy bag is having some foul smells. At time of evaluation patient does have dopplerable posterior tibialis however it is transient in nature. Does appear slightly cyanotic/dusky. CT scan is showing occlusion of her left external iliac artery, as well as increase in the left psoas concerning for abscess due to ill-defined area with air. 2137: Patient hemoglobin noted to be 4.4, blood consent obtained 2 units PRBC ordered 0000: Patient was re-evaluated stating that she is feeling slightly better I did inform her that we will need to be transferring her to higher level care given CT scan showing signs of possible ischemic limb as well as abscess to her left lower extremity. Patient also will require possible dialysis given IV load given CKD. Patient was given broad-spectrum antibiotics. Did discuss with transfer center awaiting call back for bed availability and discussion with vascular surgeon. 0055: Discussed case with vascular surgeon Dr. Huizar at [facility] he reviewed the images, stating that patient any recommendation at this time, he states that after reviewing it he believes that there is a fistula formation between her mass and her colon that could be contributing to her anemia and increased swelling/pain, states that there is nothing he would do from his side in regards to the external iliac artery compression. Discussed with transfer center to see if patient can be transferred to [facility] with general surgery consultation. Awaiting for call back 0135: Discussed case with radiologist Dr. Skinner, I discussed my concerns with the CT scan showing possible active bleeding to the left iliopsoas region, he states that it is not having a significant amount of active extra half but is hard to rule it out, he states that he will make an addendum to show possible active bleeding into the left iliopsoas. 0143: Patient re-evaluated no new complaints at this time, stating that she feels a little bit better, patient with stable blood pressure at this time. We will continue to reach out to surrounding hospitalist for transfer given patient with active bleed to the iliopsoas region. 0220: Did receive a call from [facility], provided additional information, awaiting call back from them for general surgery for possible transfer. 0250: Did receive call back from transfer center through [facility], did discuss case with Dr. Cummings, of general surgery who states he would not do any surgical interventions at this time, he believes that the patient is having more of an abscess and requires Interventional Radiology for drainage, stating that he believes patient does need intervention but would require this via Interventional Radiology, vascular surgery with and or without Orthopedic surgery. He is requesting to talk to vascular surgery to discuss additional intervention, we will await for call back through transfer center for additional recommendation 0330: Patient's repeat H&H improved, currently 5.8/17.6, patient normotensive at this time therefore not requiring any additional PRBC at this time, did obtain fibrinogen currently 694 therefore not requiring any supplemental intervention for this. 0333: Discussion with Dr. Galvez (casting machine service operator) at [facility] in regards to the case, he accepts the admission, is recommending administration of another unit of PRBC FFP, also requesting dose of clindamycin, will order that here. Patient is accepted still pending bed placement. 0352: Patient was re-evaluated, patient's blood pressure still normotensive at this time map 68, I did inform patient that she will be transferred to [facility] she understands and agrees with this plan. 0505: Transport here at bedside, patient re-evaluated prior to being transported, patient's blood pressure stable, normotensive, she is safe for transfer to [facility]. Critical Care Time Critical Care Time Attestation: Critical Care Time [60] minutes: Critical care time is separate from other billable procedures. This critical care time includes consultation with family and other consulting doctors, review of records, and interpretation of data from labs, EKGs, imaging, etc. Discharge Plan Departure Patient Disposition: [facility] Clinical Impression: Symptomatic anemia, Psoas abscess, left, External iliac artery occlusion, CKD (chronic kidney disease), Acute hyponatremia, Acute hypokalemia, UTI (urinary tract infection) Prescriptions: No Action ascorbic acid (vitamin C) 500 mg capsule PO fluoxetine 40 mg capsule 80 mg PO DAILY 90 Days Qty: 180 1RF dextroamphetamine-amphetamine [Adderall XR] 15 mg capsule,extended release 24hr 15 mg PO QAM Qty: 30 0RF clonidine HCl 0.2 mg tablet 0.1 mg .ROUTE .COMPLEX Rx Instructions: 0.1 mg; multivitamin [Multiple Vitamins] 1 EACH tablet 1 tab PO QDAY Qty: 0 estradiol 2 MG tablet 2 mg PO QDAY Qty: 0 docusate sodium 100 MG capsule 100 mg PO BIDP PRNQty: 0 buprenorphine-naloxone [Suboxone] 8-2 mg film 1 film Sublingual BID Qty: 0 Referrals: Tali Newman DO [Primary Care Provider] -
[2024-04-22 21:17] LABS: Alanine Aminotransferase 15 IU/L (<35); Albumin 2.9 g/dL (3.5-5.0); Albumin Globulin Ratio 0.7 (1.0-2.8); Alkaline Phosphatase 126 U/L (38-126); Aspartate Aminotransferase 26 IU/L (14-36); BUN Creatinine Ratio 17.1 (6-22); Bilirubin Total 1.3 mg/dL (0.2-1.3); Blood Urea Nitrogen 40 mg/dL (7-17); Calcium 8.4 mg/dL (8.4-10.2); Carbon Dioxide 17 mmol/L (22-32); Chloride 90 mmol/L (98-107); Estimated Glomerular Filt Rate 26 mL/min (>60); Globulin 4.3 g/dL (1.7-4.1); Glucose 107 mg/dL (70-100); HEMOLYSIS < 15 (0-50); Lipase 60 U/L (23-300); Potassium 3.3 mmol/L (3.4-5.1); Sodium 122 mmol/L (137-145); Total Protein 7.2 g/dL (6.3-8.2)
--- NOTE | 2024-04-22 21:30 | DI.CT.S_ITS ---
PROCEDURE: CT ANGIO ABD AORTA RUNOFF INDICATIONS: Left psoas hematoma with decreased pulses to lle TECHNIQUE: After the administration of intravenous contrast, 2.5 mm sections acquired from T12 to the feet, with optional delayed image acquisition from the knees to the feet. 3-dimensional maximum intensity projection (MIP) coronal and sagittal reformats, and/or 3-dimensional volume rendering reformatting was then performed. For radiation dose reduction, the following was used: automated exposure control. COMPARISON: [facility], CT, CT ABDOMEN PELVIS WITHOUT CONTRAST, 03/13/2024, 17:43. FINDINGS: Image Quality: Diagnostic. Abdominal aorta: Normal contrast opacification. No aneurysm or dissection. Splanchnic vessels: No hemodynamically significant stenosis or aneurysm is seen in the celiac axis, superior and inferior mesenteric arteries and bilateral renal arteries. Right lower extremity: No hemodynamically significant stenosis is seen. Normal 3 vessel runoff to the ankle level is noted. Left lower extremity: Patent left common femoral artery, with occlusion of left external iliac artery at the level of patient's known left psoas abscess collection. There is reconstituted left common femoral artery at the level of left anterior acetabulum series 4, image 180. Smaller left superficial femoral artery compared to the right side with normal appearing left popliteal artery and three-vessel runoff to left ankle level. Lower Chest: Large hiatal hernia. Dependent atelectasis versus small infiltrates in posterior aspect of left lower lobe is seen. Mild right basilar dependent atelectasis is also seen. No pleural effusion. ABDOMEN: Liver: No solid mass. Gallbladder: Hyperdense sludge material is noted within gallbladder lumen. No gallstones or gallbladder wall thickening. Biliary ducts: No biliary dilation. Pancreas: No ductal dilation. Spleen: Size is within normal limits. Adrenal Glands: No adrenal nodules. Kidneys and Ureters: Right-sided nephrostomy tube is again seen. Moderate to severe left-sided hydronephrosis and hydroureter is again seen. No right-sided hydronephrosis. Right-sided ureteral stent is noted. Bilateral renal atrophy. Stomach and Bowel: There is prior cystectomy and ileal diversion. Right-sided diverting ileostomy and left-sided ostomy is again seen. No evidence of bowel obstruction. Mild fecal stasis in the colon. No gross abnormal bowel wall thickening. Peritoneum: There is no peritoneal free fluid or free air. Large psoas abscess collection extending to involve iliacus muscle and ileal psoas muscle with internal air-fluid level slightly decreased in size compared to 03/13/2024 study. The psoas collection measures up to 5.7 x 7.8 cm in size series 4, image 162. Extensive abscess collection is also seen involving left gluteus medius muscle measures up to 10.1 x 3.4 cm in size which is new since 03/13/2024 study. Subcutaneous air and ill-defined abscess collection along left lateral upper thigh measures up to 5.3 x 3.7 cm in size series 4, image 207 also new since previous study. Air and ill-defined fluid collection also noted along anterior aspect of left upper thigh likely involving ileal psoas muscle measures up to 4.1 x 2.7 cm in size series 4, image 217. Ventral Wall: No hernia. Abdominal Nodes: No retroperitoneal or mesenteric adenopathy by size criteria. Vessels: Aorta and inferior vena cava are normal in size. PELVIS: Pelvic Organs: Unremarkable. Bladder: Unremarkable. Pelvic Nodes: No enlarged lymph nodes. Miscellaneous: No inguinal hernias are seen. Bones: No aggressive osseous abnormality. Asymmetric hypodensity throughout left pelvic and left thigh muscles compared to the right side concerning for myositis particularly involving quadriceps muscles in mid to distal thigh. IMPRESSION: 1. There is occlusion of left external iliac artery just distal to its origin at the level of patient's known large psoas abscess collection with reconstituted left common femoral artery at the level of left acetabulum and slightly diminished flow in left superficial femoral artery and left popliteal artery. Three-vessel runoff to left ankle level. 2. No hemodynamically significant stenosis is seen in abdominal aorta, right pelvic arteries and major branches of aorta. 3. Interval slight decrease in size of patient's known large left psoas abscess collection as described above. There is now worsening abscess involvement to involve left iliacus muscle and left ileus psoas muscle. Additional area of ill-defined abscess collection containing air is now seen along left lateral upper thigh and left gluteus medius muscle as described above. 4. No peritoneal free fluid or free air. No significant changes in appearance of bilateral kidneys with persistent moderate to severe left-sided hydronephrosis and hydroureter and prior surgical changes in including right-sided nephrostomy, a right-sided ureteral stent and right diverting ileostomy and left-sided possible colostomy. Dictated by: John Skinner M.D. on 04/22/2024 at 22:19 Approved by: John Skinner M.D. on 04/22/2024 at 22:46
[2024-04-22 21:33] LABS: Anisocytosis 1+; Hypochromasia 1+; Platelet Estimate Increased on smear
--- NOTE | 2024-04-22 21:33 | PC.NURSE ---
Left posterior tibial pulse detected transiently, then not at all. Doppler pulses evaluated by Dr Bustillo with RN at bedside. Sites marked on skin.
[2024-04-22 21:46] LABS: INR 1.2 (0.9-1.3); Prothrombin Time 14.1 SECONDS (9.4-12.5)
[2024-04-22 21:48] LABS: PTT Partial Thromboplastin Tim 31 SECONDS (25.1-36.5)
[2024-04-22 22:13] LABS: Lactate (Lactic Acid) 1.9 mmol/L (0.7-2.1)
[2024-04-22] MEDS: diphenhydrAMINE 50 MG/ML VIAL 25 MG IV (22:18)
[2024-04-22 23:02] LABS: Appearance Urine UA CLOUDY; Bilirubin Urine UA NEGATIVE (NEGATIVE); Color Urine UA YELLOW; Glucose Urine UA NEGATIVE (Negative); Ketones Urine UA TRACE (NEGATIVE); Leukocyte Esterase Urine UA 3+ (NEGATIVE); Nitrite Urine UA NEGATIVE (Negative); Occult Blood Urine UA TRACE-INTACT (Negative); Protein Urine UA 2+ (Negative); Specific Gravity Urine UA 1.015 (1.000-1.035)
[2024-04-22] MEDS: ONDANSETRON 4 MG/2 ML INJ IV (23:02)
[2024-04-22 23:09] LABS: pH Urine UA 6.5 (4.5-8.0)
[2024-04-22 23:10] LABS: Urine Volume 10mL (spun)
[2024-04-22 23:11] LABS: Bacteria Urine Many (>30); RBC Urine 0-1/HPF (0-5/HPF); Squamous Epithelial Cell Urine 1-5 /HPF (0-5/HPF); WBC Urine 30-100/HPF (0-5/HPF)
[2024-04-22 23:12] LABS: Culture Indicated Urine Specimen Cultured
[2024-04-22] MEDS: MEROPENEM 500 MG in SODIUM CHLORIDE 0.9% 100 ML 200 MG IV (23:39)
[2024-04-22 23:59] LABS: Adenovirus F 40/41 Not Detected (Not Detect); Astrovirus Not Detected (Not Detect); Campylobacter Not Detected (Not Detect); Clostridium difficile toxin AB Not Detected (Not Detect); Cryptosporidium Not Detected (Not Detect); Cyclospora cayetanensis Not Detected (Not Detect); Entamoeba histolytica Not Detected (Not Detect); Enteroaggregative E.coli Not Detected (Not Detect); Enteropathogenic E.coli Not Detected (Not Detect); Enterotoxigenic E.coli It/st Not Detected (Not Detect); Giardia lamblia Not Detected (Not Detect); Plesiomonsa shigelloides Not Detected (Not Detect); Rotavirus A Not Detected (Not Detect); Salmonella Not Detected (Not Detect); Sapovirus Not Detected (Not Detect); Shiga-like toxin-prod E.coli Not Detected (Not Detect); Shigella/Enteroinvasive E.coli Not Detected (Not Detect); Vibrio Not Detected (Not Detect); Vibrio cholerae Not Detected (Not Detect); Yersinia enterocolitica Not Detected (Not Detect)
[2024-04-23] VITALS (21 sets, daily range): BP systolic 88–101; BP diastolic 50–85; PULSE 82–96; RESP 16–30; TEMP 36.8–37.4; O2SAT 94–100
[2024-04-23] MEDS: VANCOMYCIN 1,000 MG/200 ML PIGGYBACK 200 MG IV (00:11)
[2024-04-23 00:12] LABS: Norovirus GI/GII Detected (Not Detect)
[2024-04-23 03:21] LABS: Hemoglobin 5.8 g/dL (12.0-16.0)
[2024-04-23 03:22] LABS: Hematocrit 17.6 % (36-46)
[2024-04-23 03:27] LABS: Fibrinogen 694 mg/dL (238-498)
--- NOTE | 2024-04-23 03:48 | PC.NURSE ---
was paged at [phone] on 04/22 for a Vascular consult. while awaiting callback from their surgeon I started to call other facilities per DR. Durán so we could get her somewhere sooner. Prov was on down time, [facility] [facility] had no ICU beds and then was also contacted. 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
[2024-04-23] MEDS: CLINDAMYCIN 900 MG/50 ML PIGGYBACK 50 MG IV (03:58)
--- NOTE | 2024-04-23 05:13 | PC.NURSE ---
Care transferred to [facility] CC transport team. Report given and questions answered. 3rd unit PRBC's started.
--- NOTE | 2024-04-23 05:37 | PC.NURSE ---
Phoned MICU to give report, spoke to Charge nurse Lance who stated he would have nurse call me back.
--- NOTE | 2024-04-23 06:03 | PC.NURSE ---
Report called to JAKE Roberts at [facility]
[2024-04-25 12:24] LABS: Acinetobacter calcoa-baumannii Not Detected (Not Detect); Bacteroides fragilis Not Detected (Not Detect); Candida albicans Not Detected (Not Detect); Candida auris Not Detected (Not Detect); Candida glabrata Not Detected (Not Detect); Candida krusei Not Detected (Not Detect); Candida parapsilosis Not Detected (Not Detect); Candida tropicalis Not Detected (Not Detect); Cryptococcus neoformans/gatti Not Detected (Not Detect); Enterobacter cloacae complex Not Detected (Not Detect); Enterobacterales Not Detected (Not Detect); Enterococcus faecalis Not Detected (Not Detect); Enterococcus faecium Not Detected (Not Detect); Haemophilus influenzae Not Detected (Not Detect); Klebsiella aerogenes Not Detected (Not Detect); Listeria monocytogenes Not Detected (Not Detect); Neisseria meningitidis Not Detected (Not Detect); Proteus species Not Detected (Not Detect); Pseudomonas aeruginosa Not Detected (Not Detect); Salmonella species Not Detected (Not Detect); Serratia marcescens Not Detected (Not Detect); Staphylococcus epidermidis Not Detected (Not Detect); Staphylococcus lugdunensis Not Detected (Not Detect); Staphylococcus species Not Detected (Not Detect); Stenotrophomonas maltophilia Not Detected (Not Detect); Streptococcus agalactiae (Gr B Not Detected (Not Detect); Streptococcus pneumonia Not Detected (Not Detect); Streptococcus pyogenes (Gr A) Not Detected (Not Detect); Streptococcus species Not Detected (Not Detect)
== END 2024-04-23 05:25 | disposition short-term general hospital (02) ==
PROVIDERS: Emergency Provider Student in an Organized Health Care Education/Training Program; PCP Family Medicine
DX: I74.5 Embolism and thrombosis of iliac artery (principal); K68.12 Psoas muscle abscess; N18.9 Chronic kidney disease, unspecified; E87.6 Hypokalemia; E87.1 Hypo-osmolality and hyponatremia; N39.0 Urinary tract infection, site not specified; D64.9 Anemia, unspecified
CPT/HCPCS: 36415; 36430; 75635; 80053; 81001; 81025; 83605; 83690; 85014; 85018; 85025; 85384; 85610; 85730; 86850; 86900; 86901; 86927; 87040; 87077; 87086; 87154; 87185; 87186; 87507; 93005; 96365; 96367; 96375; 99285; 99291; 99292; P9016; J1200; J2185; J2405; Q9967